=== PATIENT | female | born 1940 | race Caucasian/White ===

== ENCOUNTER 2021-02-18 15:21 | Emergency (ER) | payer MEDICARE ==
[~2021-02-18] VITALS: Ht 154.9 cm; Wt 69.4 kg
--- NOTE | 2021-02-18 16:54 | PHYS DOC ---
Past Medical History Additional Past Medical Histor: BREAST/STOMACH CA Past Surgical History: Cholecystectomy, Knee Replacement, Other Additional Past Surgical Histo: R MASTECTOMY Smoking Status: Never Smoker Alcohol Use: None General Adult EDM: Chief Complaint: RECTAL BLEED HPI: HPI: Patient is a 81 year old female who presents with rectal bleeding, which her home health nurse noticed while she was wiping her buttocks today. She has had some loose stool recently, and her nurse noticed an external anal lesion, and she wanted the patient to be seen in the ER since it bled when she wiped. She takes Warfarin for atrial fibrillation. She denies any recent medication dosing changes. Her last INR was checked about a week ago, and she reports that it was therapeutic. She denies abdominal pain. She reports only one episode of vomiting last night, because she ate too much, she has no reported nausea and vomiting since then. She denies hematemesis. Her stool has been brown. She denies any jeffrey hematochezia or melena. She denies any bleeding from any other sources or sites. She denies urinary symptoms. She denies chest pain, dyspnea, dizziness, syncope, focal weakness. She denies fevers or chills. Review of Systems: Review of Systems: Constitutional: Denies fever or chills. [] Eyes: Denies change in visual acuity. [] HENT: Denies nasal congestion or sore throat. [] Respiratory: Denies cough or shortness of breath. [] Cardiovascular: Denies chest pain or edema. [] GI: Reports 1 episode of vomiting yesterday, none since then. No current nausea. She does report loose stools. No jeffrey hematochezia or melena. No abdominal pain. : Denies urinary symptoms. Musculoskeletal: Denies back pain or joint pain. [] Integument: Denies rash. Easy bruising, as per usual for her. Neurologic: Denies headache, focal weakness or sensory changes. [] Endocrine: Denies polyuria or polydipsia. [] Lymphatic: Denies swollen glands. [] Psychiatric: Denies depression or anxiety. [] Heart Score: C/O Chest Pain: No Risk Factors: Risk Factors: DM, Current or recent (<one month) smoker, HTN, HLP, family history of CAD, obesity. Risk Scores: Score 0 - 3: 2.5% MACE over next 6 weeks - Discharge Home Score 4 - 6: 20.3% MACE over next 6 weeks - Admit for Clinical Observation Score 7 - 10: 72.7% MACE over next 6 weeks - Early Invasive Strategies Allergies: Allergies: Allergies Coded Allergies Type Severity Reaction Last Updated Verified No Known Drug Allergies 02/18/21 No Physical Exam: PE: Constitutional: Well developed, well nourished, no acute distress, non-toxic appearance. [] HENT: Normocephalic, atraumatic, mucous membranes are moist. Eyes: Sclera are clear and anicteric. Neck: Trachea is midline. Cardiovascular:Heart rate regular rhythm, +2 radial and dorsalis pedis pulses bilaterally. Lungs & Thorax: Bilateral breath sounds clear to auscultation [] Abdomen: Bowel sounds normal, soft, no tenderness, no masses, no pulsatile masses. Rectal: She has a thrombosed external hemorrhoid, at about 9:00. The hemorrhoid is already open, with a small clot, which is easily expressed and removed without difficulty. Stool is brown, no jeffrey hematochezia. No active bleeding from the hemorrhoid. Skin: Warm, dry, no erythema, no rash. Multiple healing bruises of bilateral forearms and bilateral anterior lower extremities. No large open wounds or lacerations are noted. Back: No tenderness, no CVA tenderness. [] Extremities: No tenderness, no cyanosis, no clubbing, ROM intact, bilateral lower extremity symmetric lymphedema. No calf tenderness. Neurologic: Alert and oriented X 3, normal motor function, normal sensory function, no focal deficits noted. [] Psychologic: She is pleasant and cooperative, normal affect. Current Patient Data: Vital Signs: Vital Signs Date Time Temp Pulse Resp B/P (MAP) Pulse Ox O2 Delivery O2 Flow Rate FiO2 02/18/21 15:39 97.7 87 20 122/59 (80) Room Air 97.7 EKG: EKG: [] Radiology/Procedures: Radiology/Procedures: [] Course & Med Decision Making: Course & Med Decision Making Pertinent Labs and Imaging studies reviewed. (See chart for details) The patient is resting comfortably. She has no complaints of pain or discomfort. I have discussed the findings, differential diagnosis and plan of care with her. I did recommend her holding her dose of warfarin tonight, given her slightly supratherapeutic INR of 3.3. She is scheduled to have her INR repeated on Thursday of this week. I discussed home care instructions for hemorrhoids. Currently, her thrombosed hemorrhoid has been evacuated by me, and appears to be open, no indication for formal incision or further drainage at this time. No evidence of infection. She is not bleeding from any other sources or sites, and does not appear to be bleeding excessively, despite warfarin coagulopathy. She feels very comfortable with the plan for discharge home. Strict return precautions are given. Lata Disclaimer: Lata Disclaimer: This electronic medical record was generated, in whole or in part, using a voice recognition dictation system. Departure Departure Impression: Primary Impression: External hemorrhoid Additional Impression: Anticoagulated on warfarin Disposition: HOME / SELF CARE / HOMELESS Condition: STABLE Patient Instructions: Hemorrhoids Additional Instructions: Return for severe abdominal pain, uncontrolled vomiting, vomiting blood, heavy or uncontrolled rectal bleeding, fever of 100.4 or higher or any other concerns. Use the medication as directed. Your INR is 3.3 today. Contact your doctor regarding possible dose adjustment. You may wish to hold tonight's dose and recheck your INR later this week. Follow up with your primary care doctor for further evaluation and treatment. Scripts Hydrocortisone Acetate (HYDROCORTISONE) 28 Gm Oint...g. 1 HARIS TP BID for hemorrhoid pain, #28 GM Prov: JOSELINE CASTANEDA DO 02/18/21 JOSELINE CASTANEDA DO Feb 18, 2021 16:54
[2021-02-18 18:13] LABS: BASO % 0 % (0-3); EOS % 0 % (0-3); HEMATOCRIT 32.7 % (36.0-47.0); HEMOGLOBIN 10.9 g/dL (12.0-15.5); LYMPH # 0.4 x10^3/uL (1.0-4.8); LYMPH % 10 % (24-48); MEAN CORPUSCULAR HEMOGLOBIN 29 pg (25-35); MEAN CORPUSCULAR HGB CONC 33 g/dL (31-37); MEAN CORPUSCULAR VOLUME 88 fL (79-100); MONO # 0.2 x10^3/uL (0.0-1.1); MONO % 4 % (0-9); NEUT # 3.8 x10^3/uL (1.8-7.7); NEUT % 85 % (31-73); PLATELET COUNT 161 x10^3/uL (140-400); RED BLOOD COUNT 3.73 x10^6/uL (3.50-5.40); RED CELL DISTRIBUTION WIDTH 17.8 % (11.5-14.5); WHITE BLOOD COUNT 4.4 x10^3/uL (4.0-11.0)
[2021-02-18 18:22] LABS: CALCIUM 10.5 mg/dL (8.5-10.1); CREATININE 1.2 mg/dL (0.6-1.0); GFR 42.9; POTASSIUM 3.4 mmol/L (3.5-5.1)
[2021-02-18 18:24] LABS: PROTHROMBIN TIME PATIENT 32.8 SEC (11.7-14.0)
[2021-02-18 18:25] VITALS: BP 107/52
[2021-02-18 18:29] LABS: ALBUMIN 2.2 g/dL (3.4-5.0); ALBUMIN/GLOBULIN RATIO 0.7 (1.0-1.7); TOTAL BILIRUBIN 0.5 mg/dL (0.2-1.0); TOTAL PROTEIN 5.3 g/dL (6.4-8.2)
[2021-02-18] MEDS ORDERED: HYDR28OI2 TP (18:42)
== END 2021-02-18 19:04 | disposition home or self-care (01) ==
LOC: ER 15:21
DX: K64.5 Perianal venous thrombosis (principal); R11.2 Nausea with vomiting, unspecified; I48.91 Unspecified atrial fibrillation; Z79.01 Long term (current) use of anticoagulants; Z90.49 Acquired absence of other specified parts of digestive tract; Z90.11 Acquired absence of right breast and nipple
CPT/HCPCS: 36415; 80053; 85025; 85610; 85730; 99284